=== PATIENT | female | born 1990 | race Caucasian/White ===

== ENCOUNTER 2021-10-19 02:06 | Emergency (ER) | payer BC ==
[2021-10-19 02:35] VITALS: BP 122/86; PULSE 78; TEMP 97.8; BMI 33.3
[2021-10-19] MEDS ORDERED: KETOROLAC TROMETHAMINE 30 MG/1 ML VIAL IM ONE (04:27)
[2021-10-19] MEDS ORDERED: KETOROLAC TROMETHAMINE 30 MG/1 ML VIAL ONE (04:46)
== END 2021-10-19 06:05 | disposition home or self-care (01) ==
LOC: JER 02:06
PROC: 3E0233Z Introduction of Anti-inflammatory into Muscle, Percutaneous Approach (ICD-10-PCS; principal; 2021-10-19)
DX: M54.50 Low back pain, unspecified (principal)
CPT/HCPCS: 99284-25